=== PATIENT | female | born 1985 | race Two or more races ===

== ENCOUNTER 2017-01-23 18:00 | Inpatient (IN) | payer OTHER ==
[~2017-01-23] VITALS: Ht 160 cm; Wt 87.7 kg
[2017-01-23 20:52] VITALS: Ht 160 cm; Wt 87.7 kg
[2017-01-23] MEDS ORDERED: LACTATED RINGER'S 1,000 ML IV PRN (20:58)
[2017-01-23] MEDS ORDERED: OXYTOCIN 30 UNITS/LR 500 ML IV SCH ×2 (21:00→21:30)
[2017-01-23] MEDS ORDERED: METHYLERGONOVINE 0.2 MG INJ IM PRN (21:00)
[2017-01-23] MEDS ORDERED: AMPICILLIN 2 GM/NS (PMX) 100 ML IV ONE (21:00)
[2017-01-23] MEDS ORDERED: MISOPROSTOL 200 MCG TAB PR PRN (21:00)
[2017-01-23] MEDS ORDERED: LIDOCAINE 1% (MPF) 30 ML INJ INJ PRN (21:00)
[2017-01-23] MEDS ORDERED: CARBOPROST 250 MCG INJ IM PRN (21:00)
[2017-01-23] MEDS ORDERED: IBUPROFEN 600 MG TAB PO PRN (21:00)
[2017-01-23] MEDS ORDERED: BUTORPHANOL 2 MG INJ IV PRN ×2 (21:00)
[2017-01-23] MEDS ORDERED: OXYTOCIN 30 UNITS/LR 500 ML IV PRN (21:00)
[2017-01-23 21:18] LABS: ADD SCAN DIFF NO
[2017-01-23 21:21] LABS: BASOPHILS % 0.2 % (0.0-2.0); EOSINOPHILS # 0.2 10^3/ul (0.0-0.5); EOSINOPHILS % 1.2 % (0.0-7.0); HEMATOCRIT 36.6 % (37.0-47.0); HEMOGLOBIN 12.6 g/dl (12.0-16.0); LYMPHOCYTES # 2.5 10^3/ul (0.8-2.9); LYMPHOCYTES % 18.2 % (15.0-51.0); MEAN CORPUSCULAR HEMOGLOBIN 29.9 pg (29.0-33.0); MEAN CORPUSCULAR HGB CONC 34.4 g/dl (32.0-37.0); MEAN CORPUSCULAR VOLUME 86.9 fl (82.0-101.0); MEAN PLATELET VOLUME 9.5 fl (7.4-10.4); MONOCYTE # 1.2 10^3/ul (0.3-0.9); MONOCYTES % 8.6 % (0.0-11.0); NEUTROPHIL # 9.7 10^3/ul (1.6-7.5); NEUTROPHILS % 71.4 % (39.0-77.0); PLATELET COUNT 321 10^3/UL (140-415); RED BLOOD COUNT 4.21 10^6/ul (4.20-5.40); RED CELL DISTRIBUTION WIDTH 14.4 % (11.5-14.5); WHITE BLOOD COUNT 13.6 10^3/ul (4.8-10.8)
[2017-01-23 21:35] LABS: INR 1.03; PARTIAL THROMBOPLASTIN TIME 28.4 Sec (25.0-35.0); PROTIME 13.5 Sec (12.2-14.2); PT RATIO 1.1
[2017-01-23] MEDS: LACTATED RINGER'S 1,000 ML IV SCH (21:39)
[2017-01-23] MEDS: OXYTOCIN 30 UNITS/LR 500 ML IV SCH (21:42)
[2017-01-23] MEDS ORDERED: CLINDAMYCIN 900 MG INJ IVPB SCH (22:00)
[2017-01-23] MEDS: DEXTROSE 5%-LR 1,000 ML IV SCH (22:30)
[2017-01-24] MEDS: CLINDAMYCIN 900 MG/D5W (PMX) 50 ML IVPB SCH ×2 (00:23→08:40)
[2017-01-24] MEDS ORDERED: AMPICILLIN 1 GM/NS (PMX) 50 ML IV SCH (01:00)
--- NOTE | 2017-01-24 01:07 | HP ---
Date/Time of Note Date/Time of Note DATE: 01/24/17 TIME: 00:49 OB - History Hx of Present Free Text/Dictation 31y.o [id number] who had x2 normal vaginal delivery was sent for induction of labor at 40w1d by her OB her was complicated by A1DM, GBS positive, allergic to penicillin Initial VE 2cm 70% -2 BS 66 admitted for induction of labor by pitocin , clindamycin for GBS status as protocol Last Menstrual Period: Apr 16, 2016 Estimated Due Date: January 22, 2017 : 4 Para: 2 Spontaneous : 1 Therapeutic : 0 Care: Good Care Ultrasounds: Normal mid trimester US Obstetrical Complications: Gestational Diabetes Medical Complications: None Past Family/Social History * Past Medical, Surgical, Family and Obstetric Histories reviewed from chart. Blood Type: O+ Rubella: not immune RPR/VDRL: Negative GBS Status: Positive HBsAG: Negative OB Admission Exam Physical Exam HEENT: WNL Heart: Rhythm Normal Lungs: Clear, Equal Abdomen: WNL Extremities: Normal Reflexes: Normal Cervical Dilatation: 2cm Effacement: 75% Station: -2 Membranes: Intact Amniotic Fluid: Unevaluable Heart Rate: 140's Accelerations: Accelerations Present Decelerations: No Decelerations Varibility: Moderate Contractions on Admission: < 5 Minutes Apart Intensity: Mild Last 72 hourBlood Glucose Bedside Glucose - 72 Hours Test 01/23/17 22:23 Bedside Glucose 66mg/dL (70-220) L Last 72 hours Lab Results CBC & BMP 01/23/17 20:30 OB Assessment/Plan Reason for admission: induction of labor Other Assessment: IUP 40w2 A1DM Plan: Induction Induction Method: per Pitocin Protocol DORINDA GEORGES MD January 24, 2017 00:59
[2017-01-24] MEDS: CEPASTAT LOZENGE MT PRN ×4 (01:47→23:30)
[2017-01-24] MEDS ORDERED: FENTAnyl 2MCG/ML-ROPIV 0.2% 100 ML ONE (03:55)
[2017-01-24] MEDS: LACTATED RINGER'S 1,000 ML IV SCH ×5 (04:25→13:14)
[2017-01-24] MEDS ORDERED: MEPERIDINE 25 MG INJ IV PRN (05:00)
[2017-01-24] MEDS ORDERED: TRIMETHOBENZAMIDE 100 MG/ML VIAL IM PRN (05:00)
[2017-01-24] MEDS ORDERED: ZOLPIDEM 5 MG TAB PO PRN ×2 (05:00→12:00)
[2017-01-24] MEDS ORDERED: HYDROmorphONE 1 MG/ML SYG IV PRN ×2 (05:00)
[2017-01-24] MEDS ORDERED: ONDANSETRON 4 MG INJ IV PRN ×3 (05:00→12:00)
[2017-01-24] MEDS ORDERED: NALOXONE (0.4 MG/ML) INJ IV PRN (05:00)
[2017-01-24] MEDS ORDERED: FENTAnyl 2MCG/ML-ROPIV 0.2% 100 ML BAG EPI SCH (05:00)
[2017-01-24] MEDS ORDERED: EPHEDrine SULFATE 50 MG/5 ML SYG IV PRN (05:00)
[2017-01-24] MEDS ORDERED: HYDROmorphONE (0.2 MG/ML) 10ML SYG IV PRN ×3 (05:00)
[2017-01-24] MEDS ORDERED: DIPHENHYDRAMINE 50 MG INJ IV PRN ×2 (05:00)
[2017-01-24] MEDS ORDERED: hydrALAzine 20 MG INJ IV PRN (05:00)
[2017-01-24] MEDS ORDERED: FENTAnyl 50 MCG/ML VIAL IV PRN ×3 (05:00)
[2017-01-24] MEDS ORDERED: LABETALOL HCL 20MG INJ IV PRN (05:00)
[2017-01-24] MEDS ORDERED: MIDAZOLAM 1 MG/ML 2 ML INJ IV PRN (05:00)
[2017-01-24] MEDS: DEXTROSE 5%-LR 1,000 ML IV SCH ×2 (05:14→13:14)
--- NOTE | 2017-01-24 08:35 | PN ---
Date/Time of Note Date/Time of Note DATE: 01/24/17 TIME: 08:32 OB Subjective Subjective Subjective In labor,comfortable with an epiduralInduction for GDM and postdates. OB Objective Objective Objective FHR: category 1.Contractions mild every 4 minutes. HEENT: WNL Heart: Rhythm Normal Lungs: Clear Abdomen: WNL Extremities: Normal Reflexes: Normal Cervical Dilatation: 5cm Effacement: 75% Station: -2 Membranes: Ruptured Amniotic Fluid: Clear Heart Rate: 140's Accelerations: Accelerations Present Decelerations: No Decelerations Varibility: Moderate Contractions on Admission: < 5 Minutes Apart Intensity: Moderate ELLYN CARNEY MD January 24, 2017 08:35
[2017-01-24] MEDS ORDERED: MINERAL OIL LIGHT 10 ML VIAL TOP ONE (09:30)
[2017-01-24] MEDS: OXYTOCIN 30 UNITS/LR 500 ML IV SCH ×3 (11:33→16:09)
--- NOTE | 2017-01-24 11:36 | LDN ---
Date/Time of Note Date/Time of Note DATE: 01/24/17 TIME: 11:34 Delivery Summary Weeks of Gestation 40 weeks and 2 days.GDM Admitted for induction. NVD baby girl. Placenta Delivered: Spontaneously Meconium: none Episiotomy: Yes Indication for episiotomy Large baby ROP position. Anesthesia type: Epidural Estimated blood loss: 300 Sponge & Needle done & correct: Yes All needle counts correct: Yes Any foreign bodies felt in the: No Problems: ELLYN CARNEY MD January 24, 2017 11:36
[2017-01-24] MEDS ORDERED: WITCH HAZEL/GLYCERIN PAD PR PRN (12:00)
[2017-01-24] MEDS: IBUPROFEN 800 MG TAB PO SCH ×3 (12:00→23:30)
[2017-01-24] MEDS ORDERED: MISOPROSTOL 200 MCG TAB PR PRN (12:00)
[2017-01-24] MEDS ORDERED: ACETAMINOPHEN/CODEINE #3 TAB PO PRN ×2 (12:00)
[2017-01-24] MEDS ORDERED: METHYLERGONOVINE 0.2 MG INJ IM PRN (12:00)
[2017-01-24] MEDS ORDERED: OXYTOCIN 30 UNITS/LR 500 ML IV PRN (12:00)
[2017-01-24] MEDS ORDERED: DIPHENHYDRAMINE 25 MG CAP PO PRN (12:00)
[2017-01-24] MEDS ORDERED: CARBOPROST 250 MCG INJ IM PRN (12:00)
[2017-01-24] MEDS ORDERED: BENZOCAINE 20% 56 ML SPRAY TOP PRN (12:00)
[2017-01-24] MEDS ORDERED: ONDANSETRON 4 MG TAB PO PRN (12:00)
[2017-01-24] MEDS ORDERED: DIBUCAINE 1% 30 GM OINT TOP PRN (12:00)
[2017-01-24] MEDS ORDERED: ACETAMINOPHEN 325 MG TAB PO PRN (12:00)
[2017-01-24] MEDS ORDERED: NA PHOSPHATE/BIPHOS 133 ML ENEMA PR PRN (12:00)
[2017-01-24 13:20] VITALS: BP 105/52; PULSE 64; RESP 20
[2017-01-24 13:50] VITALS: BP 114/58; PULSE 62; RESP 18
[2017-01-24 17:05] VITALS: BP 109/56; PULSE 68; RESP 20
[2017-01-24 20:00] VITALS: BP 97/55; PULSE 60; RESP 20
[2017-01-24] MEDS: ACETAMINOPHEN 325 MG TAB PO PRN (20:04)
[2017-01-24] MEDS: MAGNESIUM HYDROXIDE 30ML CUP PO SCH (20:51)
[2017-01-24 21:01] VITALS: BP 140/84; PULSE 65; RESP 18
[2017-01-25] VITALS: BP 99/52; PULSE 63; RESP 18
[2017-01-25] MEDS: CEPASTAT LOZENGE MT PRN ×2 (01:55→11:06)
[2017-01-25 04:20] VITALS: BP 101/55; PULSE 62; RESP 18
[2017-01-25] MEDS: IBUPROFEN 800 MG TAB PO SCH ×3 (05:41→17:34)
[2017-01-25] MEDS ORDERED: ACCU-CHEK XX SCH (06:00)
[2017-01-25 07:26] LABS: ADD SCAN DIFF NO
[2017-01-25 07:30] LABS: BASOPHIL # 0.1 10^3/ul (0.0-0.1); BASOPHILS % 0.4 % (0.0-2.0); EOSINOPHILS # 0.2 10^3/ul (0.0-0.5); EOSINOPHILS % 1.5 % (0.0-7.0); HEMOGLOBIN 10.6 g/dl (12.0-16.0); LYMPHOCYTES # 3.6 10^3/ul (0.8-2.9); LYMPHOCYTES % 22.9 % (15.0-51.0); MEAN CORPUSCULAR HEMOGLOBIN 29.3 pg (29.0-33.0); MEAN CORPUSCULAR HGB CONC 33.1 g/dl (32.0-37.0); MEAN CORPUSCULAR VOLUME 88.4 fl (82.0-101.0); MEAN PLATELET VOLUME 9.7 fl (7.4-10.4); MONOCYTE # 1.1 10^3/ul (0.3-0.9); MONOCYTES % 6.8 % (0.0-11.0); NEUTROPHIL # 10.7 10^3/ul (1.6-7.5); PLATELET COUNT 254 10^3/UL (140-415); RED BLOOD COUNT 3.62 10^6/ul (4.20-5.40); RED CELL DISTRIBUTION WIDTH 14.4 % (11.5-14.5); WHITE BLOOD COUNT 15.8 10^3/ul (4.8-10.8)
--- NOTE | 2017-01-25 08:17 | PN ---
Date/Time of Note Date/Time of Note DATE: 01/25/17 TIME: 08:16 OB Subjective Subjective Subjective Doiong well WBC 15.8 Hgb 10.6 FBS 76 OB Objective Objective Objective Afebrile.Normal BP Lochia,normal Uterus firm. HEENT: WNL Heart: Rhythm Normal Lungs: Clear Abdomen: WNL Extremities: Normal Reflexes: Normal ELLYN CARNEY MD January 25, 2017 08:17
--- NOTE | 2017-01-25 08:19 | PD.PPDC ---
[employer] Discharge Instruction Diagnosis Final Diagnosis: 40 weeks qnd 2 days Low Inhibin GDM Condition Patient Condition: Good Diet Diet: Special Diet Special Diet: 0 ADA tomy diet Activity/Restrictions Activity: Normal Activity May Shower Restrictions: No Sexual Activity Nothing in the Vagina No [place] No Tampons, douche Follow-up Follow-up with Physician: 2, Week/Weeks Return to clinic for [facility] Instructions: Fever greater than 101 Worsening abdominal pain Excessive Vaginal Bleeding More than 2 pads per hour Unable to tolerate diet OB Instructions: Breast Tenderness Surgical Instructions: Incisional Drainage Incisional Redness ELLYN CARNEY MD January 25, 2017 08:19
[2017-01-25 08:25] VITALS: BP 95/67; PULSE 62; RESP 16
[2017-01-25] MEDS: MAGNESIUM HYDROXIDE 30ML CUP PO SCH ×2 (08:48→21:00)
[2017-01-25] MEDS: ACETAMINOPHEN 325 MG TAB PO PRN (08:49)
[2017-01-25] MEDS: LACTATED RINGER'S 1,000 ML IV SCH ×4 (12:42→12:44)
[2017-01-25] MEDS: DEXTROSE 5%-LR 1,000 ML IV SCH ×2 (12:42→12:43)
[2017-01-25 16:30] VITALS: BP 110/76; PULSE 80; RESP 17
[2017-01-25 19:45] VITALS: BP 102/70; PULSE 78; RESP 18
[2017-01-25] MEDS ORDERED: LANOLIN 7 GM TUBE TOP PRN (21:00)
[2017-01-26] MEDS: IBUPROFEN 800 MG TAB PO SCH ×3 (00:15→12:15)
[2017-01-26] MEDS: CEPASTAT LOZENGE MT PRN (01:07)
[2017-01-26 08:30] VITALS: BP 104/66; PULSE 65; RESP 18
[2017-01-26] MEDS: MAGNESIUM HYDROXIDE 30ML CUP PO SCH (09:00)
[2017-01-26] MEDS ORDERED: LOPERAMIDE 2 MG CAP PO ONE (12:30)
[2017-01-27] MEDS ORDERED: DIPHTH/TET/ACEL PERTUSS (ADULT) 0.5 ML VIAL IM* ONE (09:00)
[2017-01-27] MEDS ORDERED: MEASLES,MUMPS,RUBELLA VACCINE INJ SC* ONE (09:00)
== END 2017-01-26 16:10 | disposition home or self-care (01) | DRG 775 ==
LOC: L-D 19:17 → PP1 01-24 13:16
PROVIDERS: ADMIT Specialist; ATTEND Specialist
PROC: 10E0XZZ Delivery of Products of Conception, External Approach (ICD-10-PCS; principal; 2017-01-24)
PROC: 0W8NXZZ Division of Female Perineum, External Approach (ICD-10-PCS; 2017-01-24)
PROC: 3E033VJ Introduction of Other Hormone into Peripheral Vein, Percutaneous Approach (ICD-10-PCS; 2017-01-24)
DX: O48.0 Post-term pregnancy (principal); O24.419 Gestational diabetes mellitus in pregnancy, unspecified control; Z37.0 Single live birth; Z3A.40 40 weeks gestation of pregnancy
CPT/HCPCS: 62319; 82962; 85025; 85610; 85730; 86592; 86900; 86901; 87340; 99464; J2590; J3010; J7120; J7121